=== PATIENT | male | born 1980 | race Caucasian/White ===

== ENCOUNTER 2023-06-23 13:22 | Emergency (ER) | payer OTHER ==
[2023-06-23 13:40] VITALS: BP 137/101; PULSE 70; RESP 17; TEMP 98.3; BMI 29.2
== END 2023-06-23 14:23 | disposition home or self-care (01) ==
LOC: FER 13:22
DX: K64.8 Other hemorrhoids (principal); K62.5 Hemorrhage of anus and rectum
CPT/HCPCS: 99282-25